=== PATIENT | female | born 1985 | race African-American/Black ===

== ENCOUNTER 2024-06-14 17:37 | Emergency (ER) | payer MEDICAID ==
[~2024-06-14] VITALS: Ht 167.6 cm; Wt 87.0 kg
[~2024-06-14 17:37] MED LIST: PRENATAL VITAMINS
[2024-06-14 17:38] VITALS: BP 140/90; PULSE 95; RESP 18; TEMP 98; O2SAT 98
[2024-06-14] MEDS: ACETAMINOPHEN 500MG TABLET PO ONE (18:51)
[2024-06-14] MEDS ORDERED: IBUP-2029 MT (19:45)
== END 2024-06-14 20:32 | disposition home or self-care (01) ==
LOC: ER 17:37
DX: S00.83XA Contusion of other part of head, initial encounter (principal); X58.XXXA Exposure to other specified factors, initial encounter; Y93.89 Activity, other specified; Y92.89 Other specified places as the place of occurrence of the external cause; Y99.8 Other external cause status
CPT/HCPCS: 70486; 81025; 99284